=== PATIENT | male | born 1990 | race Caucasian/White ===

== ENCOUNTER 2019-01-11 13:54 | Inpatient (IN) | payer OTHER ==
[~2019-01-11] VITALS: Ht 185.4 cm; Wt 73.0 kg
--- OUTSIDE RECORDS SUMMARY | 2019-01-11 13:57 | XMS REPORT | Continuity of Care Document ---
Author Author [employer] Address Unknown Phone Unavailable Care Team Providers Care Gold Leaf Printer Name Role Phone wmbly Unavailable Unavailable Problems Problem Status Onset Date Classification Date Reported Comments Source Right upper quadrant pain 09/10/2016 Diagnosis 09/10/2016 [facility] Medications Medication Details Route Status Patient Instructions Ordering Provider Order Date Source No Medications Reported No Medications Reported Active [facility] Allergies, Adverse Reactions, Alerts No Known Medication Allergies Immunizations No Data Provided for This Section Results No Data Provided for This Section Pathology Reports No Data Provided for This Section Diagnostic Reports No Data Provided for This Section Consultation Notes No Data Provided for This Section Discharge Summaries No Data Provided for This Section History and Physicals No Data Provided for This Section Vital Signs Vital Sign Value Date Comments Source Diastolic (mm Hg) 80 09/10/2016 [facility] Height 73 09/10/2016 [facility] Systolic (mm Hg) 126 09/10/2016 [facility] Weight 170 09/10/2016 [facility] Encounters Location Location Details Encounter Type Encounter Number Reason For Visit Attending Provider ADM Date DC Date Status Source [place] - [id number] Ramila [facility]brahim, LABEL SEWER-C: [address], [place] [address], Ph. [id number] Ramila Ibrahim 09/10/2016 [facility] Procedures No Data Provided for This Section Assessment and Plan No Data Provided for This Section Plan of Care No Data Provided for This Section Social History Social History Date Source Smoking Status Current Some Day Smoker 09/10/2016 [facility] Family History No Data Provided for This Section Advance Directives No Data Provided for This Section Functional Status No Data Provided for This Section
--- OUTSIDE RECORDS SUMMARY | 2019-01-11 13:57 | XMS REPORT | Encounter Summary ---
Author Organization Unknown Address [address] [place] [address] Phone [phone] Reason for Visit Medical Complaint Instructions 1. Right upper quadrant pain call back Discussion Note: None recorded. Plan of Care Patient Instructions Recommend patient to follow-up with primary care provider for work-up - scheduled appointment through health post with primary care provider for 4PM today. Recommend blood work (complete metabolic panel for liver function) and abdominal ultrasound to evaluate liver/gallbladder involvement/inflammation. Reminders Provider Appointments None recorded. Lab None recorded. Referral None recorded. Procedures None recorded. Surgeries None recorded. Imaging None recorded. Medications No Medications Reported Medications Administered None recorded. Vitals Height Weight BMI Blood Pressure 6 ft 1 in 170 lbs 22.4 126/80 Lab Results None recorded. Allergies Name Reaction Severity Onset NKDA Problems None recorded. Procedures None recorded. Vaccine List None recorded. Social History Smoking Status Current Some Day Smoker Past Encounters 09/10/2016 Right Upper Quadrant Pain Ramila Ibrahim METAL ROLLING MILL OPERATOR-C: [address], [place] [address], Ph. History of Present Illness Doxzry-Rmyeuzkh-Hmlngqsz / Abdominal Pain Reported By: Patient HPI: Quality: soft, intermittent. Severity: moderate. Duration: present for < 1 week; stomach pain, diarrhea off and on x 1 week; vomited X 1 day. Onset/Timing: worse in the morning. Context: no one else with similar symptoms, no recent camping, no recent picnic, no possible food sources, no recent travel. Alleviating factors: ; Nothing. Aggravating factors: ; Can't identify any aggravating factors. Associated Symptoms: no fever/chills, no rash, no joint pain, no weight loss, no blood in stool, no mucus in stool, no black or tarry stools, abdominal pain, excess gas, nausea, vomiting Notes: Reports drinking 6-7 beers/day Review of Systems Basic Reported By: Patient Constitutional: Constitutional: no fever Eyes: Eyes: no eye complaints Zbbi-Yufq-Eedeb-Throat: Ears: no ear complaints. Nose: no nose/sinus problems. Mouth/Throat: no sore throat, no bleeding gums, no mouth complaints, no teeth problems Cardiovascular: Cardiovascular: no chest pain, no shortness of breath, no known heart murmur Respiratory: Respiratory: no cough, no wheezing, no shortness of breath Genitourinary: Genitourinary: no urinary complaints, no discharge Musculoskeletal: Musculoskeletal: no muscle aches, no muscle weakness, no arthralgias/joint pain, no back pain Neurologic: Neurologic: no loss of consciousness, no weakness, no numbness, no seizures, no dizziness, no headaches Physical Exam Adult Basic, Adult Male Complete Reported By: Patient Constitutional: General Appearance: healthy-appearing, well-nourished, well-developed. Level of Distress: NAD. Ambulation: ambulating normally Psychiatric: Mental Status: active and alert. Orientation: to time, to place, to person Eyes: Lids and Conjunctivae: non-injected, no discharge, no pallor. Pupils: PERRLA. Lens: clear. Sclerae: non-icteric Neck: Neck: supple. Lymph Nodes: no cervical LAD, no supraclavicular LAD Lungs: Respiratory effort: no dyspnea, no tachypnea, no use of accessory muscles, no intercostal retractions. Auscultation: breath sounds normal, good air movement Cardiovascular: Heart Auscultation: RRR, no murmurs Neurologic: Gait and Station: normal gait, normal station Abdomen: Bowel Sounds: normal. Inspection and Palpation: soft, no guarding, no rebound tenderness, no masses, RUQ tenderness
[2019-01-11] MEDS ORDERED: DIATRIZOATE MEGL/DIATRIZOA SOD 30 ML BTL PO ONE (14:35)
[2019-01-11 14:48] LABS: BASOPHILS # (AUTO) 0.1 (0.0-0.1); BASOPHILS % 0.5 % (0.0-1.0); EOSINOPHILS # (AUTO) 0.1 (0.0-0.4); EOSINOPHILS % 0.5 % (0.0-6.0); HEMATOCRIT 42.4 % (38.2-49.6); HEMOGLOBIN 14.9 g/dL (14.0-18.0); LYMPHOCYTES # (AUTO) 1.4 (1.0-3.2); LYMPHOCYTES % 9.4 % (18.0-39.1); MEAN CORPUSCULAR HEMOGLOBIN 33.9 pg (28-32); MEAN CORPUSCULAR HGB CONC 35.1 g/dL (31-35); MEAN CORPUSCULAR VOLUME 96.6 fL (81-99); MONOCYTES # (AUTO) 1.7 (0.2-0.8); MONOCYTES % 11.2 % (4.4-11.3); NEUTROPHILS # (AUTO) 11.4 (2.1-6.9); NEUTROPHILS % 77.7 % (38.7-80.0); PLATELET COUNT 248 x10e3/uL (140-360); RED BLOOD COUNT 4.39 x10e6/uL (4.3-5.7); RED CELL DISTRIBUTION WIDTH 12.3 % (11.7-14.4)
[2019-01-11 15:07] LABS: ANION GAP 18.4 mmol/L (8-16); BLOOD UREA NITROGEN 10 mg/dL (7-26); BUN/CREATININE RATIO 10 (6-25); CALCIUM 10.5 mg/dL (8.4-10.2); CARBON DIOXIDE 23 mmol/L (22-29); CHLORIDE 96 mmol/L (98-107); CREATININE, SERUM 0.99 mg/dL (0.72-1.25); EST GLOMERULAR FILTRATION RATE > 60 ML/MIN (60-); GLUCOSE 110 mg/dL (74-118); POTASSIUM 3.4 mmol/L (3.5-5.1); SODIUM 134 mmol/L (136-145)
[2019-01-11] MEDS ORDERED: SODIUM CHLORIDE 0.9% 1000ML 1,000 ML IV SCH (15:15)
[2019-01-11] MEDS ORDERED: POTASSIUM CHLORIDE 20 MEQ TAB CR PO ONE (15:15)
[2019-01-11 16:20] LABS: BILIRUBIN,URINE MODERATE (NEGATIVE); CLARITY,URINE SL CLOUDY (CLEAR); COLOR,URINE YELLOW (YELLOW); LEUKOCYTE ESTERASE ,URINE NEGATIVE (NEGATIVE); NITRITE,URINE NEGATIVE (NEGATIVE); PROTEIN,URINE DIPSTICK 1+ (NEGATIVE); URINE UROBILINOGEN 1 mg/dL (0.2 - 1)
[2019-01-11 16:21] LABS: KETONES,URINE 1+ (NEGATIVE)
[2019-01-11 16:32] LABS: BACTERIA,URINE MANY /HPF; EPITHELIAL CELLS,URINE MODERATE /LPF
--- NOTE | 2019-01-11 17:15 | Diagnostic Imaging Report ---
EXAM: CT Abdomen and Pelvis WITH intravenous contrast INDICATION: Rectal pain COMPARISON: None. TECHNIQUE: Abdomen and pelvis were scanned utilizing a multidetector helical scanner from the lung base to the pubic symphysis after administration of IV contrast. Coronal and sagittal reformations were obtained. Routine protocol was performed. Scan was performed when during portal venous phase. IV CONTRAST: 100mL of Isovue 370 ORAL CONTRAST: Water COMPLICATIONS: None RADIATION DOSE: Total DLP: 261.47 mGy*cm Dose modulation, iterative reconstruction, and/or weight based adjustment of the mA/kV was utilized to reduce the radiation dose to as low as reasonably achievable. FINDINGS: LOWER THORAX: Minimal bibasilar dependent subsegmental atelectasis. HEPATOBILIARY: Diffusely decreased hepatic parenchymal attenuation consistent with hepatic steatosis. No focal liver lesion. No biliary ductal dilatation. The gallbladder appears unremarkable. SPLEEN: No splenomegaly. PANCREAS: No focal masses or ductal dilatation. ADRENALS: No adrenal nodules. KIDNEYS/URETERS: No hydronephrosis, stones, or solid mass lesions. PELVIC ORGANS/BLADDER: Unremarkable. PERITONEUM / RETROPERITONEUM: No free air or fluid. LYMPH NODES: No lymphadenopathy. VESSELS: Unremarkable. GI TRACT: There is soft tissue thickening at the distal rectum with an adjacent 3.4 x 2.1 cm fluid collection which demonstrates peripheral enhancement. No other bowel wall thickening. No bowel obstruction. Normal appendix. BONES AND SOFT TISSUES: No acute osseous injury. No suspicious lytic or blastic lesions. IMPRESSION: Distal rectal soft tissue thickening with adjacent 3.4 x 2.1 cm perirectal abscess. Hepatic steatosis. Signed by: Sushma Jo MD on 01/11/2019 5:11 PM
[2019-01-11] MEDS ORDERED: MORPHINE SULFATE 2 MG/ML SYR 1ML IV PRN (17:45)
[2019-01-11] MEDS ORDERED: LORAZEPAM INJ 2 MG/ML VIAL IV PRN (18:15)
[2019-01-11] MEDS ORDERED: MULTIVITAMINS- 12 INJECTION 10 ML, FOLIC ACID MDV 5 MG, THIAMINE HCL INJ 100 MG in SODI... IV ONE (18:15)
[2019-01-11 18:26] LABS: ALBUMIN 4.3 g/dL (3.5-5.0); BILIRUBIN,DIRECT 0.5 mg/dL (0.0-0.5)
--- OUTSIDE RECORDS SUMMARY | 2019-01-11 18:57 | XMS REPORT | Continuity of Care Document ---
Author Author [employer] Address Unknown Phone Unavailable Care Team Providers Care Livestock Farm Manager Name Role Phone [employer] Unavailable Unavailable Problems Problem Status Onset Date [...] Date Status Source [place] [id number], WASTE TREATMENT OPERATOR-C: [address], [place] [address], Ph. [id number] Ramila Ibrahim 09/10/2016 [facility] Procedures No Data [...]
--- OUTSIDE RECORDS SUMMARY | 2019-01-11 18:57 | XMS REPORT ---
Author Author [facility] Address Unknown Phone Unavailable Care Team Providers Care Billposting Supervisor Name Role Phone SHLOMO BAÑUELOS Unavailable Unavailable Problems This patient has no known problems. Allergies, Adverse Reactions, Alerts This patient has no known allergies or adverse reactions. Medications This patient has no known medications. Results Test Description Test Time Test Comments Text Results Atomic Results Result Comments CT ABDOMEN/PELVIS W 2019-01-11 17:06:00 [place] [address] Patient Name: MARCELLA CABALLERO MR #: [id number] : 1990 Age/Sex: 28/M Req #: [id number] Adm Physician: Ordered by: KALA COLORADO TRACK MECHANIC Report #: [id number] Location: ER Room/Bed: Procedure: [id number] CT/CT ABDOMEN/PELVIS W Exam Date: 01/11/19 Exam Time: 1615 REPORT STATUS: Signed EXAM: CT Abdomen and Pelvis WITH intravenous contrast INDICATION: Rectal pain COMPARISON: None. TECHNIQUE: Abdomen and pelvis were scanned utilizing a multidetector helical scanner from the lung base to the pubic symphysis after administration of IV contrast. Coronal and sagittal reformations were obtained. Routine protocol was performed. Scan was performed when during portal venous phase. IV CONTRAST: 100mL of Isovue 370 ORAL CONTRAST: Water COMPLICATIONS: None RADIATION DOSE: Total DLP: 261.47 mGy*cm Dose modulation, iterative reconstruction, and/or weight based adjustment of the mA/kV was utilized to reduce the radiation dose to as low as reasonably achievable. FINDINGS: LOWER THORAX: Minimal bibasilar dependent subsegmental atelectasis. HEPATOBILIARY: Diffusely decreased hepatic parenchymal attenuation consistent with hepatic steatosis. No focal liver lesion. No biliary ductal dilatation. The gallbladder appears unremarkable. SPLEEN: No splenomegaly. PANCREAS: No focal masses or ductal dilatation. ADRENALS: No adrenal nodules. KIDNEYS/URETERS: No hydronephrosis, stones, or solid mass lesions. PELVIC ORGANS/BLADDER: Unremarkable. PERITONEUM / RETROPERITONEUM: No free air or fluid. LYMPH NODES: No lymphadenopathy. VESSELS: Unremarkable. GI TRACT: There is soft tissue thickening at the distal rectum with an adjacent 3.4 x 2.1 cm fluid collection which demonstrates peripheral enhancement. No other bowel wall thickening. No bowel obstruction. Normal appendix. BONES AND SOFT TISSUES: No acute osseous injury. No suspicious lytic or blastic lesions. IMPRESSION: Distal rectal soft tissue thickening with adjacent 3.4 x 2.1 cm perirectal abscess. Hepatic steatosis. Signed by: Jonathan Pate MD on 01/11/2019 5:11 PM Dictated By: JONATHAN PATE MD 10 Transcribed By: CHARLES on 01/11/191710 COPY TO: KALA COLORADO NP
--- NOTE | 2019-01-11 19:03 | Consultation ---
DATE OF CONSULTATION: 01/11/2019 REASON FOR CONSULTATION: Perirectal abscess. HISTORY OF PRESENT ILLNESS: The patient is a 28-year-old male, who has been having perirectal pain for several days as well as constipation. The patient's pain got worse, came to the Emergency Room at [facility]. The patient has a chronic history of diarrhea, has never been worked up for it. The patient also has a history of heavy drinking. He drinks about 12 pack every day and smokes in addition to the heavy drinking. PAST SURGICAL HISTORY: He has no previous surgeries. MEDICATIONS: None. FAMILY HISTORY: Noncontributory. REVIEW OF SYSTEMS: As per history of present illness. PHYSICAL EXAMINATION: GENERAL: Reveals a 28-year-old male, in no acute distress. His face is flushed. VITAL SIGNS: Stable. He is afebrile. HEAD: Reveals a flushed face. EARS, NOSE, AND THROAT: Revealed no active disease. LUNGS: Clear. HEART: Reveals regular sinus rhythm. ABDOMEN: Reveals a soft abdomen. RECTAL: Unable to be performed due to pain. The limited examination that I was able to perform does not appear that the patient have a fissure. LABORATORY DATA: Reveal white count of 14.7 with normal platelet count. Electrolytes show a potassium of 3.4. The CAT scan of the of the abdomen and pelvis is consistent with a perirectal abscess. ASSESSMENT: 1. Perirectal abscess. 2. Alcohol abuse. 3. Cigarette abuse. 4. Chronic diarrhea, which has never been worked up. PLAN: The plan is to admit the patient. Give him intravenous antibiotics, pain management, to proceed with rectal examination under anesthesia and incision and drainage of perirectal abscess in the morning. He and his are aware of potential complications such as bleeding, infection, recurrence, fistula formation, and urinary retention. These all have been discussed in detail with them and they agreed to proceed with surgery. The patient will be admitted to the hospital by Dr. Huerta and delirium tremens precautions are being instituted. Thank you very much for this consultation. MD VERONIKA Mullins/ANA /[id number]
[2019-01-11] MEDS: CEFTRIAXONE SOD 2 GM/NS 100 ML 100 ML IV SCH (19:10)
[2019-01-11] MEDS: METRONIDAZOLE 500MG/NS 100ML 100 ML IV SCH ×2 (19:30→23:52)
[2019-01-11] MEDS: MORPHINE SULFATE INJ 4 MG/ML INJ 1ML IV PRN (21:05)
[2019-01-11] MEDS: ONDANSETRON HCL INJ 2MG/ML 2ML 2 MG/ML VIAL IV PRN (21:05)
--- NOTE | 2019-01-11 21:15 | NUR ---
PATIENT RECIEVED TO FLOOR WITH NO COMPLAINTS OF PAIN OR DISCOMFORT AT THIS TIME, AT BEDSIDE. PATIENT EDUCATED ON PAIN MANAGEMENT AND OPTIONS FOR WITHDRAWL. PATIENT RESTING COMFORTABLY IN BED AT THIS TIME. ALSO EDUCATED OF NPO STATUS AT MIDNIGHT. WILL CONTINUE TO MONITOR.
[2019-01-11 22:19] VITALS: BP 123/79
[2019-01-11 22:22] VITALS: BP 123/79
[2019-01-11] MEDS ORDERED: SODIUM CHLORIDE 0.9% 50ML 50 ML ONE (22:27)
[2019-01-11] MEDS ORDERED: IOPAMIDOL 370 MG/ML 200 ML INFUS..BTL INJ ONE (22:27)
[2019-01-11 23:00] VITALS: BP 113/73
[2019-01-12] VITALS (11 sets, daily range): BP systolic 101–119; BP diastolic 65–82
[2019-01-12] MEDS: MORPHINE SULFATE INJ 4 MG/ML INJ 1ML IV PRN ×3 (01:05→12:05)
[2019-01-12] MEDS: METRONIDAZOLE 500MG/NS 100ML 100 ML IV SCH ×4 (05:22→23:47)
[2019-01-12] MEDS ORDERED: HYDRALAZINE HCL 20 MG/ML VIAL IV PRN (06:30)
[2019-01-12] MEDS ORDERED: ACETAMINOPHEN 325 MG TAB PO PRN (06:30)
[2019-01-12] MEDS ORDERED: LORAZEPAM INJ 2 MG/ML VIAL IV PRN (06:30)
[2019-01-12 07:03] LABS: BASOPHILS # (AUTO) 0.1 (0.0-0.1); BASOPHILS % 0.3 % (0.0-1.0); EOSINOPHILS # (AUTO) 0.1 (0.0-0.4); EOSINOPHILS % 0.4 % (0.0-6.0); HEMATOCRIT 35.7 % (38.2-49.6); HEMOGLOBIN 12.5 g/dL (14.0-18.0); LYMPHOCYTES % 6.3 % (18.0-39.1); MEAN CORPUSCULAR HEMOGLOBIN 34.2 pg (28-32); MEAN CORPUSCULAR VOLUME 97.8 fL (81-99); MONOCYTES # (AUTO) 2.1 (0.2-0.8); MONOCYTES % 13.4 % (4.4-11.3); NEUTROPHILS # (AUTO) 12.6 (2.1-6.9); PLATELET COUNT 223 x10e3/uL (140-360); RED BLOOD COUNT 3.65 x10e6/uL (4.3-5.7); RED CELL DISTRIBUTION WIDTH 12.3 % (11.7-14.4)
[2019-01-12 07:22] LABS: ANION GAP 14.7 mmol/L (8-16); BLOOD UREA NITROGEN < 5 mg/dL (7-26); CARBON DIOXIDE 21 mmol/L (22-29); CHLORIDE 105 mmol/L (98-107); CREATININE, SERUM 0.67 mg/dL (0.72-1.25); EST GLOMERULAR FILTRATION RATE > 60 ML/MIN (60-); GLUCOSE 92 mg/dL (74-118); MAGNESIUM 2.1 MG/DL (1.3-2.1); POTASSIUM 3.7 mmol/L (3.5-5.1); SODIUM 137 mmol/L (136-145)
[2019-01-12 07:27] LABS: BUN/CREATININE RATIO 7 (6-25)
[2019-01-12] MEDS: FAMOTIDINE 20 MG TAB PO SCH ×2 (07:30→16:58)
[2019-01-12] MEDS: FOLIC ACID 1 MG TAB PO SCH ×2 (07:38→11:40)
[2019-01-12] MEDS: MULTIVITAMINS/MINERALS TAB PO SCH ×2 (07:38→11:40)
[2019-01-12] MEDS: THIAMINE HCL 100 MG TAB PO SCH ×2 (07:39→11:39)
[2019-01-12] MEDS ORDERED: HYDROGEN PEROXIDE 120 ML BTL ONE (08:31)
[2019-01-12] MEDS ORDERED: LIDOCAINE HCL 2% 30 ML TUBE ONE (08:31)
[2019-01-12] MEDS: NICOTINE 21 MG/EA PATCH TOP SCH ×2 (09:00→11:38)
[2019-01-12 09:05] LABS: EOSINOPHILS % (MANUAL) 1 % (0-7); LYMPHOCYTES % (MANUAL) 10 % (19-48); MONOCYTES % (MANUAL) 10 % (3.4-9.0); NEUTROPHILS % (MANUAL) 79 % (40-74)
[2019-01-12 09:06] LABS: PLATELET ESTIMATE ADEQUATE; PLATELET MORPHOLOGY COMMENT NORMAL; RBC MORPHOLOGY COMMENT NORMAL
[2019-01-12] MEDS ORDERED: LEVOFLOXACIN 500MG/D5W 100ML 100 ML IV ONE (09:45)
--- NOTE | 2019-01-12 11:11 | Operative Report ---
DATE OF PROCEDURE: 01/12/2019 SURGEON: Noe Enamorado MD PREOPERATIVE DIAGNOSIS: Perirectal abscess. POSTOPERATIVE DIAGNOSIS: Perirectal abscess. PROCEDURE PERFORMED: Rectal examination under anesthesia, anoscopy, and incision and drainage of perirectal abscess. ANESTHESIA: General. ESTIMATED BLOOD LOSS: Minimal. DRAINS: None. COMPLICATIONS: None. INDICATION AND FINDINGS: The patient is a 28-year-old male admitted with perianal and rectal pain, tenesmus, constipation for several days. The patient had a history of chronic diarrhea, which had never been worked up. He denied any rectal bleeding. INTRAOPERATIVE FINDINGS: The patient had a perirectal abscess that was palpable through the examining finger with the patient in the lithotomy position. The abscess was located posteriorly somewhat was bulging into the rectum. There was some pointing also towards the perianal skin. The abscess was pointing into the lumen of the rectum in the lithotomy position around the 3 to 4 o'clock position. It was more easily palpable through the rectum than it was actually through the perianal skin at that location. The abscess cavity was irrigated and we did not see any connection with rectal lumen indicating a fistula in the location. Preoperatively, the patient, his understood potential complications including the fact that he has chronic diarrhea, has never been worked up and recurrence infection bleeding, urinary retention were all potential complications. DESCRIPTION OF PROCEDURE: With the patient lying on the operative table in the supine position after administration of general anesthesia, he was placed in the lithotomy position. The buttocks were shaved with electric razor and prepped and draped. An anal pack was placed with iodoform gauze and rectal examination revealed the palpable abscess through the rectum at the previously described location. It was also palpable through the perianal region or around the previously described location. At that point, I decided to proceed with the incision and drainage of the abscess extra-luminally. A small incision was made in the perianal skin about the 3-4 o'clock location outside of the centric ring and then the cavity was entered. Loculations were bluntly broken down with a clamp. All the pus, which was foul smelling was drained. The cavity was then irrigated with saline and peroxide. We did not see any evidence of fistula formation or any peroxide visible bubbling into the rectal lumen. Aerobic and anaerobic cultures were taken. The cavity was then packed with 1 inch iodoform gauze that was secured to skin with 3-0 silk. The patient tolerated the procedure well, taken to recovery room in stable condition. The family informed of the intraoperative findings. MD VERONIKA Mullins/ANA /[id number]
[2019-01-12] MEDS: ONDANSETRON HCL INJ 2MG/ML 2ML 2 MG/ML VIAL IV PRN (12:05)
[2019-01-12] MEDS: CEFTRIAXONE SOD 2 GM/NS 100 ML 100 ML IV SCH (16:58)
[2019-01-12] MEDS ORDERED: SEVOFLURANE INHAL SOLN 250 ML PEN BTL ONE (17:17)
[2019-01-12] MEDS ORDERED: ONDANSETRON HCL INJ 2MG/ML 2ML 2 MG/ML VIAL ONE (17:17)
[2019-01-12] MEDS ORDERED: KETOROLAC TROMETHAMINE 30 MG/ML VIAL ONE (17:17)
[2019-01-12] MEDS ORDERED: PROPOFOL IV EMULSION 10 MG/ML 20 ML VIAL ONE (17:17)
[2019-01-12] MEDS ORDERED: DEXAMETHASONE SOD PHOS INJ 4 MG/ML VIAL ONE (17:17)
[2019-01-12] MEDS ORDERED: LIDOCAINE HCL 2% LOCAL INJ 5 ML SDV VIAL INJ ONE (17:17)
[2019-01-12] MEDS: HYDROCODONE/APAP 7.5MG-325MG 1 EA TAB PO PRN ×2 (18:20→23:48)
[2019-01-13 05:24] LABS: BASOPHILS # (AUTO) 0.1 (0.0-0.1); BASOPHILS % 0.4 % (0.0-1.0); EOSINOPHILS # (AUTO) 0.1 (0.0-0.4); EOSINOPHILS % 0.9 % (0.0-6.0); HEMATOCRIT 34.7 % (38.2-49.6); HEMOGLOBIN 11.4 g/dL (14.0-18.0); LYMPHOCYTES % 17.1 % (18.0-39.1); MEAN CORPUSCULAR HEMOGLOBIN 33.1 pg (28-32); MEAN CORPUSCULAR HGB CONC 32.9 g/dL (31-35); MEAN CORPUSCULAR VOLUME 100.9 fL (81-99); MONOCYTES # (AUTO) 1.9 (0.2-0.8); MONOCYTES % 15.8 % (4.4-11.3); NEUTROPHILS # (AUTO) 7.7 (2.1-6.9); PLATELET COUNT 238 x10e3/uL (140-360); RED BLOOD COUNT 3.44 x10e6/uL (4.3-5.7); RED CELL DISTRIBUTION WIDTH 12.6 % (11.7-14.4)
[2019-01-13 05:48] LABS: ANION GAP 12.4 mmol/L (8-16); BLOOD UREA NITROGEN < 5 mg/dL (7-26); CALCIUM 9.1 mg/dL (8.4-10.2); CARBON DIOXIDE 28 mmol/L (22-29); CHLORIDE 104 mmol/L (98-107); EST GLOMERULAR FILTRATION RATE > 60 ML/MIN (60-); GLUCOSE 91 mg/dL (74-118); POTASSIUM 3.4 mmol/L (3.5-5.1); SODIUM 141 mmol/L (136-145)
[2019-01-13 05:49] LABS: BUN/CREATININE RATIO 7 (6-25)
[2019-01-13] MEDS: METRONIDAZOLE 500MG/NS 100ML 100 ML IV SCH ×4 (06:05→23:35)
[2019-01-13] MEDS: HYDROCODONE/APAP 7.5MG-325MG 1 EA TAB PO PRN ×3 (06:08→21:28)
[2019-01-13 06:51] LABS: EOSINOPHILS % (MANUAL) 4 % (0-7); LYMPHOCYTES % (MANUAL) 25 % (19-48); MONOCYTES % (MANUAL) 10 % (3.4-9.0); NEUTROPHILS % (MANUAL) 59 % (40-74)
[2019-01-13 06:52] LABS: RBC MORPHOLOGY COMMENT ABNORMAL
[2019-01-13 06:53] LABS: PLATELET ESTIMATE ADEQUATE; PLATELET MORPHOLOGY COMMENT NORMAL
--- NOTE | 2019-01-13 07:00 | NUR ---
Pt received resting in bed. Alert and oriented x4. Oriented to staff and surroundings. Encouraged to press call montanez if help needed. Call montanez within reach. Will monitor
[2019-01-13 07:25] VITALS: BP 112/73
[2019-01-13 09:35] VITALS: BP 112/73
--- NOTE | 2019-01-13 09:35 | NUR ---
All meds given as ordered. Dressing to abscess changed with Gauze, and abd pads. Emotional support given. Will monitor
[2019-01-13] MEDS: THIAMINE HCL 100 MG TAB PO SCH (09:36)
[2019-01-13] MEDS: FAMOTIDINE 20 MG TAB PO SCH ×2 (09:36→17:39)
[2019-01-13] MEDS: FOLIC ACID 1 MG TAB PO SCH (09:36)
[2019-01-13] MEDS: MULTIVITAMINS/MINERALS TAB PO SCH (09:36)
--- NOTE | 2019-01-13 10:10 | NUR ---
Pt left for 2V xray
--- NOTE | 2019-01-13 10:18 | NUR ---
Pt returned from Xray
--- NOTE | 2019-01-13 10:37 | Diagnostic Imaging Report ---
Chest, 2 views, 01/13/2019. History: History of smoking. Comparison: None available. Findings: The cardiomediastinal silhouette and pulmonary vasculature are within normal limits. Linear opacities are present in the right upper lobe and left lower lobe. The lungs are otherwise clear without evidence of consolidation or pleural effusion. There are no acute osseous or soft tissue abnormalities. Impression: Bilateral subsegmental atelectasis. Signed by: Andrez Lindquist on 01/13/2019 10:34 AM
[2019-01-13 11:34] VITALS: BP 121/76
--- NOTE | 2019-01-13 12:29 | NUR ---
Attempted to give pt [place] for pain, but pt refused stating that he's "about to sign closing documents in order to purchase a house, and does not want any drugs in his system." Emotional support given. Will monitor
[2019-01-13] MEDS ORDERED: MIDAZOLAM HCL 2 MG/2 ML VIAL ONE (15:58)
[2019-01-13] MEDS ORDERED: FENTANYL CITRATE/PF 100MCG/2 ML INJ ONE (15:58)
[2019-01-13] MEDS: CEFTRIAXONE SOD 2 GM/NS 100 ML 100 ML IV SCH (17:39)
[2019-01-13 19:19] VITALS: BP 112/79
[2019-01-13 22:20] VITALS: BP 121/71
[2019-01-13] MEDS ORDERED: SODIUM CHLORIDE 0.9% 250ML 250 ML ONE (22:20)
--- NOTE | 2019-01-13 22:20 | NUR ---
received pt to room 213 from IMCU, no c/o pain or discomfort, resp even and unlabored, bed in lowest and locked position, call light in reach
[2019-01-13 23:21] VITALS: BP 121/71
[2019-01-14] VITALS (8 sets, daily range): BP systolic 104–123; BP diastolic 60–71
[2019-01-14 05:09] LABS: BASOPHILS # (AUTO) 0.1 (0.0-0.1); BASOPHILS % 0.9 % (0.0-1.0); EOSINOPHILS # (AUTO) 0.3 (0.0-0.4); EOSINOPHILS % 3.4 % (0.0-6.0); HEMATOCRIT 36.6 % (38.2-49.6); HEMOGLOBIN 12.2 g/dL (14.0-18.0); LYMPHOCYTES # (AUTO) 1.9 (1.0-3.2); LYMPHOCYTES % 21.6 % (18.0-39.1); MEAN CORPUSCULAR HEMOGLOBIN 33.5 pg (28-32); MEAN CORPUSCULAR HGB CONC 33.3 g/dL (31-35); MEAN CORPUSCULAR VOLUME 100.5 fL (81-99); MONOCYTES # (AUTO) 1.6 (0.2-0.8); MONOCYTES % 17.6 % (4.4-11.3); NEUTROPHILS # (AUTO) 4.9 (2.1-6.9); NEUTROPHILS % 55.9 % (38.7-80.0); PLATELET COUNT 269 x10e3/uL (140-360); RED BLOOD COUNT 3.64 x10e6/uL (4.3-5.7); RED CELL DISTRIBUTION WIDTH 12.4 % (11.7-14.4)
[2019-01-14 05:27] LABS: ANION GAP 14.8 mmol/L (8-16); BLOOD UREA NITROGEN < 5 mg/dL (7-26); CALCIUM 9.6 mg/dL (8.4-10.2); CARBON DIOXIDE 30 mmol/L (22-29); CHLORIDE 104 mmol/L (98-107); CREATININE, SERUM 0.82 mg/dL (0.72-1.25); EST GLOMERULAR FILTRATION RATE > 60 ML/MIN (60-); GLUCOSE 97 mg/dL (74-118); POTASSIUM 3.8 mmol/L (3.5-5.1); SODIUM 145 mmol/L (136-145)
[2019-01-14 05:30] LABS: BUN/CREATININE RATIO 6 (6-25)
[2019-01-14] MEDS: METRONIDAZOLE 500MG/NS 100ML 100 ML IV SCH ×3 (06:18→20:24)
[2019-01-14] MEDS: FAMOTIDINE 20 MG TAB PO SCH ×2 (08:19→19:39)
[2019-01-14] MEDS: FOLIC ACID 1 MG TAB PO SCH (08:19)
[2019-01-14] MEDS: HYDROCODONE/APAP 7.5MG-325MG 1 EA TAB PO PRN ×2 (08:20→19:45)
[2019-01-14] MEDS: ONDANSETRON HCL INJ 2MG/ML 2ML 2 MG/ML VIAL IV PRN (08:20)
[2019-01-14] MEDS: MULTIVITAMINS/MINERALS TAB PO SCH (08:30)
[2019-01-14] MEDS: NICOTINE 21 MG/EA PATCH TOP SCH (08:30)
[2019-01-14] MEDS: THIAMINE HCL 100 MG TAB PO SCH (08:30)
--- NOTE | 2019-01-14 19:00 | NUR ---
Handoff report to oncoming nurse made aware 1800 Flagyl needs to be given, nurse verbalized understanding.
[2019-01-14] MEDS: CEFTRIAXONE SOD 2 GM/NS 100 ML 100 ML IV SCH (19:39)
[2019-01-15] MEDS: METRONIDAZOLE 500MG/NS 100ML 100 ML IV SCH ×3 (00:25→12:00)
[2019-01-15 00:35] VITALS: BP 124/82
[2019-01-15 06:02] LABS: BASOPHILS # (AUTO) 0.1 (0.0-0.1); BASOPHILS % 1.2 % (0.0-1.0); EOSINOPHILS # (AUTO) 0.3 (0.0-0.4); EOSINOPHILS % 5.1 % (0.0-6.0); HEMATOCRIT 36.1 % (38.2-49.6); LYMPHOCYTES # (AUTO) 1.9 (1.0-3.2); LYMPHOCYTES % 28.6 % (18.0-39.1); MEAN CORPUSCULAR HEMOGLOBIN 33.3 pg (28-32); MEAN CORPUSCULAR HGB CONC 33.2 g/dL (31-35); MEAN CORPUSCULAR VOLUME 100.3 fL (81-99); MONOCYTES # (AUTO) 1.2 (0.2-0.8); MONOCYTES % 18.6 % (4.4-11.3); NEUTROPHILS # (AUTO) 3.1 (2.1-6.9); PLATELET COUNT 318 x10e3/uL (140-360); RED CELL DISTRIBUTION WIDTH 12.2 % (11.7-14.4)
[2019-01-15 06:19] LABS: ANION GAP 12.3 mmol/L (8-16); BLOOD UREA NITROGEN < 5 mg/dL (7-26); BUN/CREATININE RATIO 6 (6-25); CALCIUM 9.8 mg/dL (8.4-10.2); CARBON DIOXIDE 30 mmol/L (22-29); CHLORIDE 103 mmol/L (98-107); CREATININE, SERUM 0.82 mg/dL (0.72-1.25); EST GLOMERULAR FILTRATION RATE > 60 ML/MIN (60-); GLUCOSE 90 mg/dL (74-118); MAGNESIUM 2.4 MG/DL (1.3-2.1); POTASSIUM 3.3 mmol/L (3.5-5.1); SODIUM 142 mmol/L (136-145)
[2019-01-15 07:04] LABS: PHOSPHORUS 4.3 MG/DL (2.3-4.7)
[2019-01-15 08:05] VITALS: BP 132/69
[2019-01-15 09:50] VITALS: BP 132/69
[2019-01-15] MEDS: THIAMINE HCL 100 MG TAB PO SCH (09:52)
[2019-01-15] MEDS: FAMOTIDINE 20 MG TAB PO SCH (09:52)
[2019-01-15] MEDS: MULTIVITAMINS/MINERALS TAB PO SCH (09:52)
[2019-01-15] MEDS: FOLIC ACID 1 MG TAB PO SCH (09:52)
[2019-01-15] MEDS: NICOTINE 21 MG/EA PATCH TOP SCH (09:54)
[2019-01-15] MEDS ORDERED: POTASSIUM CHLORIDE 20 MEQ TAB CR PO ONE (10:00)
[2019-01-15] MEDS ORDERED: ZINC SULFATE220 M1 PO (10:51)
[2019-01-15] MEDS ORDERED: ACETAMINOPHEN325 M1 PO (10:51)
[2019-01-15] MEDS ORDERED: NICODERM CQ1 EAC2 TOP (10:51)
[2019-01-15] MEDS ORDERED: VITAMIN B-1100 MG PO (10:51)
[2019-01-15] MEDS ORDERED: Multivitamins/Minerals PO (10:51)
[2019-01-15] MEDS ORDERED: ASCORBIC ACID500 MG PO (10:51)
[2019-01-15] MEDS ORDERED: TYLENOL # 31 EA PO (10:51)
[2019-01-15] MEDS ORDERED: FOLIC ACID1 MG PO (10:51)
[2019-01-15] MEDS ORDERED: Calcium Carbonate PO (10:51)
[2019-01-15] MEDS ORDERED: BACTRIM DS TAB1 EACH PO (10:54)
[2019-01-15] MEDS ORDERED: CIPRO500 MG PO (10:54)
[2019-01-15 11:28] VITALS: BP 109/66
[2019-01-15] MEDS: HYDROCODONE/APAP 7.5MG-325MG 1 EA TAB PO PRN (11:55)
[2019-01-15] MEDS ORDERED: LEVAQUIN500 MG PO (12:03)
[2019-01-15] MEDS ORDERED: FLAGYL500 MG PO (12:07)
--- NOTE | 2019-01-15 13:05 | NUR ---
Right AC IV discontinued. No signs of infiltration noted. 2x2 gauze and tape placed. Taken via wheelchair, by PCT, to personal car. Accompanied by significant other. AAOX4 to time, person, place, situation. Respirations even and unlabored. Discharge instructions, rx, and all personal belongings taken with patient.
[2019-01-15] MEDS ORDERED: ASCORBIC ACID 500 MG TAB PO SCH (17:00)
[2019-01-15] MEDS ORDERED: ZINC SULFATE 220 MG CAP PO SCH (17:00)
[2019-01-15] MEDS ORDERED: OYST-CAL-D 500MG TABLET PO SCH (17:00)
--- NOTE | 2019-01-16 03:33 | Discharge Summary ---
CONSULTING PHYSICIAN: Noe Enamorado MD HISTORY OF PRESENT ILLNESS: Mr. Zhong is a 28-year-old male, who had complained of perirectal pain and constipation for approximately 1 week prior to admission. The pain was initially intermittent, but became sharp. He denied nausea, vomiting, diarrhea, fever, or abdominal pain on admission, and had not seen any drainage. PAST MEDICAL HISTORY: Includes irritable bowel syndrome. PAST SURGICAL HISTORY: Includes hernia repair. FAMILY HISTORY: At the time of H and P, the family history was noncontributory. SOCIAL HISTORY: Smokes half a pack a day. Alcohol, he drinks a 12 pack of beer a day for the last 10 years and considers himself an alcoholic. Denies illicit drug use. ALLERGIES: NO KNOWN ALLERGIES. ADMISSION DIAGNOSES: Include: 1. Perirectal abscess. 2. Alcoholism. 3. Tobacco use. DISCHARGE DIAGNOSES: 1. Perirectal abscess. 2. Alcoholism. 3. Tobacco use. 4. Acute hypokalemia. 5. Mild hypermagnesemia. HOSPITAL COURSE: The patient received Flagyl and Rocephin during his stay for the perirectal abscess. The culture that was collected grew pansensitive E coli. CT of the abdomen was positive for perirectal abscess. A culture had been collected on 01/12. Chest x-ray done on the had shown bilateral subsegmental atelectasis. On 01/12/2019, he underwent I and D. Today at the bedside, Dr. Enamorado removed the packing and inserted additional gauze and explained to the that tomorrow he should remove that and then begin sitz baths. Today, his potassium level was 3.3. This was repleted with 40 mEq of potassium chloride orally. On admission, WBCs 14.7; then on , 15.99, which was the highest during admission. Today on the day of discharge, WBC 6.65, hemoglobin is 12 today, hematocrit 36.1, BUN less than 5, creatinine 0.82, and GFR greater than 60. Magnesium level today 2.4. Dr. Enamorado and I were both at the bedside today and discussed with the patient the importance of stopping drinking that he should not drink any alcohol whatsoever including any cough drops. His was present as well. It was explained to the patient that the new medication such as Flagyl would cause him to be sick if he did drink alcohol. DISCHARGE PRESCRIPTIONS: Include Nicoderm CQ 21 mg topical daily, Flagyl 250 mg p.o. t.i.d., lower dosage was used in case he has any liver dysfunction from the alcohol. He has been here long enough that he is clear of any DTs or delirium tremens. Levaquin 500 mg p.o. daily. Both Flagyl and Levaquin will be for 7 days. Tylenol No.3 one tablet p.o. q.4 hours p.r.n. for severe pain, quantity 20; Tylenol; vitamin C; calcium carbonate; folic acid; multivitamin; zinc sulfate. Some medications are for wound healing supplements. The patient has no complaints of pain before the procedure. He still has perirectal tenderness. He had 2 diarrheal stools yesterday and will follow up with Dr. Minor for chronic diarrhea. The patient is to see him within 2 weeks. He is to see Dr. Huerta in 1-2 weeks and establish PCP. Follow up with Dr. Enamorado on Wednesday, the 17 of January. He denies any chills. He has been switched from a full liquid diet to a regular diet. ACTIVITY LEVEL: As tolerated. Dictated by Mark Barrios NP Bentley Huerta MD HWP/MODL /[id number]
== END 2019-01-15 13:05 | disposition home or self-care (01) | DRG 854 ==
LOC: ER 13:54 → ERHOLD 17:44 → IMCU 21:40 → MED/SURG2 01-13 22:10
PROVIDERS: ADMIT Internal Medicine; ATTEND Internal Medicine
PROC: 0D9P0ZZ Drainage of Rectum, Open Approach (ICD-10-PCS; principal; 2019-01-12 12:30)
DX: A41.9 Sepsis, unspecified organism (principal); K61.1 Rectal abscess; F10.20 Alcohol dependence, uncomplicated; F17.210 Nicotine dependence, cigarettes, uncomplicated; K58.9 Irritable bowel syndrome, unspecified
CPT/HCPCS: 36415; 71046; 74177; 80048; 80076; 81001; 82140; 83735; 84100; 85025; 87071; 87075; 87086; 87186; 87205; 99284; J0696; J1100; J1885; J1956; J2001; J2250; J2270; J2405; J3010; J3411; J7030; J7050; Q9967

== ENCOUNTER 2021-10-30 16:16 | Emergency (ER) | payer OTHER ==
[~2021-10-30] VITALS: Ht 185.4 cm; Wt 73.0 kg
[~2021-10-30 16:16] MED LIST: ACETAMINOPHEN325 M1 PO; ASCORBIC ACID500 MG PO; BACTRIM DS TAB1 EACH PO; CIPRO500 MG PO; Calcium Carbonate PO; FLAGYL500 MG PO; FOLIC ACID1 MG PO; LEVAQUIN500 MG PO; Multivitamins/Minerals PO; NICODERM CQ1 EAC2 TOP; TYLENOL # 31 EA PO; VITAMIN B-1100 MG PO; ZINC SULFATE220 M1 PO
[2021-10-30] MEDS ORDERED: CEPHALEXIN500 MG PO (17:07)
== END 2021-10-30 17:15 | disposition home or self-care (01) ==
LOC: ER 17:04
DX: H57.12 Ocular pain, left eye (principal); H10.9 Unspecified conjunctivitis; K21.9 Gastro-esophageal reflux disease without esophagitis
CPT/HCPCS: 99282

== ENCOUNTER 2022-07-14 20:05 | Emergency (ER) | payer OTHER ==
[~2022-07-14] VITALS: Ht 185.4 cm; Wt 73.0 kg
[~2022-07-14 20:05] MED LIST changes: +CEPHALEXIN500 MG PO
[2022-07-14] MEDS ORDERED: ONDANSETRON HCL INJ 2MG/ML 2ML 2 MG/ML VIAL IV STA (20:33)
[2022-07-14] MEDS ORDERED: KETOROLAC TROMETHAMINE 30 MG/ML VIAL IV STA (20:33)
[2022-07-14] MEDS ORDERED: SODIUM CHLORIDE 0.9% 1000ML 1,000 ML IV ONE ×2 (20:45→21:15)
[2022-07-14] MEDS ORDERED: ACETAMINOPHEN 325 MG TAB PO ONE (20:45)
[2022-07-14 20:47] LABS: BASOPHILS # (AUTO) 0.1 (0.0-0.1); BASOPHILS % 0.8 % (0.0-1.0); EOSINOPHILS # (AUTO) 0.1 (0.0-0.4); HEMATOCRIT 43.7 % (38.2-49.6); HEMOGLOBIN 14.8 g/dL (14.0-18.0); LYMPHOCYTES # (AUTO) 1.1 (1.0-3.2); LYMPHOCYTES % 10.7 % (18.0-39.1); MEAN CORPUSCULAR HEMOGLOBIN 34.5 pg (28-32); MEAN CORPUSCULAR HGB CONC 33.9 g/dL (31-35); MEAN CORPUSCULAR VOLUME 101.9 fL (81-99); MONOCYTES # (AUTO) 0.8 (0.2-0.8); MONOCYTES % 7.9 % (4.4-11.3); NEUTROPHILS # (AUTO) 8.3 (2.1-6.9); NEUTROPHILS % 79.3 % (38.7-80.0); PLATELET COUNT 325 x10e3/uL (140-360); RED BLOOD COUNT 4.29 x10e6/uL (4.3-5.7); RED CELL DISTRIBUTION WIDTH 11.9 % (11.7-14.4)
[2022-07-14 20:48] LABS: CLARITY,URINE CLEAR (CLEAR); COLOR,URINE YELLOW (YELLOW); KETONES,URINE NEGATIVE (NEGATIVE); LEUKOCYTE ESTERASE ,URINE NEGATIVE (NEGATIVE); NITRITE,URINE NEGATIVE (NEGATIVE); PROTEIN,URINE DIPSTICK NEGATIVE (NEGATIVE); URINE UROBILINOGEN 0.2 mg/dL (0.2 - 1)
[2022-07-14 21:07] LABS: ALBUMIN 4.1 g/dL (3.5-5.0); ALBUMIN/GLOBULIN RATIO 1.1 (0.8-2.0); CALCIUM 9.5 mg/dL (8.4-10.2); CREATININE, SERUM 0.8 mg/dL (0.72-1.25)
[2022-07-14] MEDS ORDERED: SODIUM CHLORIDE 0.9% 1000ML 1,000 ML ONE (21:16)
[2022-07-14 21:24] LABS: CREATINE KINASE 149 IU/L (30-200)
[2022-07-14] MEDS ORDERED: PANTOPRAZOLE SO40 MG PO (23:18)
[2022-07-15] MEDS ORDERED: IOPAMIDOL 370 MG/ML 100 ML INFUS..BTL INJ ONE (00:35)
== END 2022-07-14 23:24 | disposition home or self-care (01) ==
LOC: ER 20:20
DX: R50.9 Fever, unspecified (principal); R10.31 Right lower quadrant pain; K29.20 Alcoholic gastritis without bleeding; F10.10 Alcohol abuse, uncomplicated; K21.9 Gastro-esophageal reflux disease without esophagitis; R94.31 Abnormal electrocardiogram [ECG] [EKG]
CPT/HCPCS: 36415; 71046; 74177; 76705; 80053; 80320; 81001; 82550; 82553; 83605; 83690; 84484; 85025; 87040; 93005; 99284; J1885; J2405; J2543; J7030; Q9967

== ENCOUNTER 2022-12-30 19:15 | Inpatient (IN) | payer OTHER ==
[~2022-12-30] VITALS: Ht 185.4 cm; Wt 70.3 kg
[~2022-12-30 19:15] MED LIST changes: +PANTOPRAZOLE SO40 MG PO
[2022-12-30] MEDS ORDERED: SODIUM CHLORIDE 0.9% 1000ML 1,000 ML IV ONE (19:45)
[2022-12-30] MEDS ORDERED: SODIUM CHLORIDE FLUSH 10 ML SYR IV PRN (19:45)
[2022-12-30 20:02] LABS: BASOPHILS # (AUTO) 0.1 (0.0-0.1); BASOPHILS % 1.4 % (0.0-1.0); EOSINOPHILS % 0.7 % (0.0-6.0); HEMATOCRIT 44.4 % (38.2-49.6); LYMPHOCYTES # (AUTO) 2.7 (1.0-3.2); LYMPHOCYTES % 48.4 % (18.0-39.1); MEAN CORPUSCULAR HEMOGLOBIN 32.9 pg (28-32); MEAN CORPUSCULAR VOLUME 91.2 fL (81-99); MONOCYTES # (AUTO) 0.5 (0.2-0.8); MONOCYTES % 9.6 % (4.4-11.3); NEUTROPHILS # (AUTO) 2.2 (2.1-6.9); NEUTROPHILS % 39.7 % (38.7-80.0); PLATELET COUNT 282 x10e3/uL (140-360); RED BLOOD COUNT 4.87 x10e6/uL (4.3-5.7); RED CELL DISTRIBUTION WIDTH 13.2 % (11.7-14.4)
[2022-12-30 20:04] LABS: AMPHETAMINES SCREEN,URINE NEGATIVE (NEGATIVE); BENZODIAZEPINES SCREEN,URINE NEGATIVE (NEGATIVE); PHENCYCLIDINE SCREEN,URINE NEGATIVE (NEGATIVE)
[2022-12-30 20:08] LABS: INR 0.81; PROTHROMBIN TIME 11.7 seconds (11.9-14.5)
[2022-12-30 20:09] LABS: PARTIAL THROMBOPLASTIN TIME 29.7 seconds (23.8-35.5)
[2022-12-30] MEDS ORDERED: MULTIVITAMINS- 12 INJECTION 10 ML, FOLIC ACID MDV 1 MG, THIAMINE HCL INJ 100 MG in SODI... IV ONE (20:15)
[2022-12-30] MEDS ORDERED: OCTREOTIDE ACETATE 500 MCG in SODIUM CHLORIDE 0.9% 250ML 249 ML IV ONE (20:15)
[2022-12-30 20:17] LABS: ALANINE AMINOTRANSFERASE 14 IU/L (0-55); ALBUMIN 4.5 g/dL (3.5-5.0); ALBUMIN/GLOBULIN RATIO 1.3 (0.8-2.0); ALKALINE PHOSPHATASE 78 IU/L (40-150); ANION GAP 20.5 mmol/L (8-16); BLOOD UREA NITROGEN < 5 mg/dL (7-26); CALCIUM 9.8 mg/dL (8.4-10.2); CARBON DIOXIDE 23 mmol/L (22-29); CHLORIDE 99 mmol/L (98-107); GLUCOSE 143 mg/dL (74-118); POTASSIUM 3.5 mmol/L (3.5-5.1); SODIUM 139 mmol/L (136-145)
[2022-12-30] MEDS ORDERED: ONDANSETRON HCL INJ 2MG/ML 2ML 2 MG/ML VIAL ONE (20:17)
[2022-12-30] MEDS ORDERED: SODIUM CHLORIDE 0.9% 1000ML 1,000 ML ONE (20:18)
[2022-12-30 20:22] LABS: BUN/CREATININE RATIO 6 (6-25)
[2022-12-30] MEDS ORDERED: ONDANSETRON HCL INJ 2MG/ML 2ML 2 MG/ML VIAL IV STA (20:30)
[2022-12-30] MEDS ORDERED: MELATONIN10 M1 PO (20:49)
[2022-12-30] MEDS ORDERED: SERTRALINE HCL100 MG PO (20:49)
[2022-12-30] MEDS ORDERED: GABAPENTIN300 MG PO (20:49)
[2022-12-30] MEDS ORDERED: NALTREXONE HCL50 MG PO (20:49)
[2022-12-30] MEDS ORDERED: DIVALPROEX SOD500 M1 PO (20:49)
[2022-12-30] MEDS ORDERED: QUETIAPINE FUMA50 MG PO (20:49)
[2022-12-30] MEDS ORDERED: HYDROXYZINE HCL25 MG PO (20:49)
[2022-12-30] MEDS ORDERED: TRAZODONE HCL50 MG PO (20:49)
[2022-12-30] MEDS: SODIUM CHLORIDE 0.9% 1000ML 1,000 ML IV SCH (21:30)
[2022-12-30] MEDS ORDERED: LORAZEPAM INJ 2 MG/ML VIAL IV PRN (21:45)
[2022-12-30 22:50] VITALS: BP 124/83; PULSE 90; RESP 17; TEMP 98.5; O2SAT 95
[2022-12-30 23:31] VITALS: BP 124/83; PULSE 90; RESP 17; TEMP 98.5; O2SAT 95
[2022-12-30 23:56] VITALS: BP 124/83; PULSE 90; RESP 17; TEMP 98.5; O2SAT 95
[2022-12-31] VITALS (7 sets, daily range): BP systolic 113–131; BP diastolic 79–91; PULSE 43–78; RESP 18–21; TEMP 97.6–98.3; O2SAT 96–100
[2022-12-31] MEDS ORDERED: ONDANSETRON HCL INJ 2MG/ML 2ML 2 MG/ML VIAL IV PRN
[2022-12-31] MEDS: METOCLOPRAMIDE HCL 10 MG/2ML VIAL IV SCH ×4 (00:10→16:08)
[2022-12-31 01:00] LABS: BASOPHILS # (AUTO) 0.1 (0.0-0.1); BASOPHILS % 0.9 % (0.0-1.0); EOSINOPHILS % 0.5 % (0.0-6.0); HEMATOCRIT 38.3 % (38.2-49.6); HEMOGLOBIN 13.7 g/dL (14.0-18.0); LYMPHOCYTES # (AUTO) 3.2 (1.0-3.2); LYMPHOCYTES % 49.5 % (18.0-39.1); MEAN CORPUSCULAR HEMOGLOBIN 32.4 pg (28-32); MEAN CORPUSCULAR HGB CONC 35.8 g/dL (31-35); MEAN CORPUSCULAR VOLUME 90.5 fL (81-99); MONOCYTES # (AUTO) 0.9 (0.2-0.8); MONOCYTES % 13.8 % (4.4-11.3); NEUTROPHILS # (AUTO) 2.3 (2.1-6.9); NEUTROPHILS % 35.1 % (38.7-80.0); PLATELET COUNT 230 x10e3/uL (140-360); RED BLOOD COUNT 4.23 x10e6/uL (4.3-5.7); RED CELL DISTRIBUTION WIDTH 13.6 % (11.7-14.4)
[2022-12-31] MEDS: SODIUM CHLORIDE 0.9% 1000ML 1,000 ML IV SCH ×3 (01:58→18:06)
[2022-12-31 05:43] LABS: BASOPHILS # (AUTO) 0.1 (0.0-0.1); BASOPHILS % 1.2 % (0.0-1.0); EOSINOPHILS # (AUTO) 0.1 (0.0-0.4); HEMATOCRIT 39.9 % (38.2-49.6); HEMOGLOBIN 13.7 g/dL (14.0-18.0); LYMPHOCYTES # (AUTO) 2.2 (1.0-3.2); LYMPHOCYTES % 41.7 % (18.0-39.1); MEAN CORPUSCULAR HEMOGLOBIN 32.2 pg (28-32); MEAN CORPUSCULAR HGB CONC 34.3 g/dL (31-35); MEAN CORPUSCULAR VOLUME 93.7 fL (81-99); MONOCYTES # (AUTO) 0.7 (0.2-0.8); MONOCYTES % 14.2 % (4.4-11.3); NEUTROPHILS # (AUTO) 2.2 (2.1-6.9); NEUTROPHILS % 41.7 % (38.7-80.0); PLATELET COUNT 231 x10e3/uL (140-360); RED BLOOD COUNT 4.26 x10e6/uL (4.3-5.7); RED CELL DISTRIBUTION WIDTH 13.9 % (11.7-14.4)
[2022-12-31 06:16] LABS: ALANINE AMINOTRANSFERASE 12 IU/L (0-55); ALBUMIN 3.8 g/dL (3.5-5.0); ALBUMIN/GLOBULIN RATIO 1.5 (0.8-2.0); ALKALINE PHOSPHATASE 67 IU/L (40-150); ANION GAP 17.3 mmol/L (8-16); BLOOD UREA NITROGEN < 5 mg/dL (7-26); CALCIUM 8.7 mg/dL (8.4-10.2); CARBON DIOXIDE 22 mmol/L (22-29); CHLORIDE 105 mmol/L (98-107); CREATININE, SERUM 0.81 mg/dL (0.72-1.25); GLUCOSE 67 mg/dL (74-118); POTASSIUM 4.3 mmol/L (3.5-5.1); SODIUM 140 mmol/L (136-145)
[2022-12-31 06:19] LABS: BUN/CREATININE RATIO 6 (6-25)
[2022-12-31 08:14] LABS: CHOL/HDL RATIO 2.2 (3.9-4.7)
[2022-12-31 11:10] LABS: HEMATOCRIT 38.3 % (38.2-49.6); HEMOGLOBIN 13.5 g/dL (14.0-18.0)
[2022-12-31] MEDS ORDERED: PROPOFOL IV EMULSION 10 MG/ML 20 ML VIAL ONE (11:35)
[2022-12-31] MEDS ORDERED: LIDOCAINE HCL 2% LOCAL INJ 5 ML SDV VIAL INJ ONE (11:35)
[2022-12-31] MEDS ORDERED: MIDAZOLAM HCL 2 MG/2 ML VIAL ONE (12:16)
[2022-12-31] MEDS: CHLORDIAZEPOXIDE HCL 25 MG CAP PO SCH ×2 (16:08→22:21)
[2022-12-31] MEDS: FOLIC ACID 1 MG TAB PO SCH (16:08)
[2022-12-31] MEDS: THIAMINE HCL 100 MG TAB PO SCH (16:08)
[2022-12-31] MEDS: NICOTINE 14 MG/EA PATCH TOP SCH (20:05)
[2023-01-01] MEDS: METOCLOPRAMIDE HCL 10 MG/2ML VIAL IV SCH ×3 (00:04→12:17)
[2023-01-01 01:14] VITALS: BP 141/95; PULSE 78; RESP 18; TEMP 98.5; O2SAT 98
[2023-01-01 04:44] VITALS: BP 113/81; PULSE 57; RESP 16; TEMP 98; O2SAT 97
[2023-01-01] MEDS: CHLORDIAZEPOXIDE HCL 25 MG CAP PO SCH (05:20)
[2023-01-01] MEDS: SODIUM CHLORIDE 0.9% 1000ML 1,000 ML IV SCH (05:20)
[2023-01-01 07:40] VITALS: BP 113/81; PULSE 49; RESP 16; TEMP 98; O2SAT 97
[2023-01-01 07:47] LABS: HEMATOCRIT 40.2 % (38.2-49.6); HEMOGLOBIN 13.9 g/dL (14.0-18.0)
[2023-01-01 08:27] VITALS: BP 132/97; PULSE 50; RESP 18; TEMP 98.1; O2SAT 99
[2023-01-01] MEDS: NICOTINE 14 MG/EA PATCH TOP SCH (08:50)
[2023-01-01] MEDS: FOLIC ACID 1 MG TAB PO SCH (08:50)
[2023-01-01] MEDS: THIAMINE HCL 100 MG TAB PO SCH (08:50)
[2023-01-01 11:37] VITALS: BP 135/98; PULSE 71; RESP 16; TEMP 97.8; O2SAT 98
[2023-01-01 11:42] VITALS: BP 135/98; PULSE 49; PULSE 71; RESP 16; TEMP 97.8; O2SAT 98
== END 2023-01-01 14:59 | disposition left against medical advice (07) | DRG 392 ==
LOC: ER 19:25 → ERHOLD 21:28 → MED/SURG2 22:27 → OBSVTOIN 01-01 09:03
PROVIDERS: ADMIT Internal Medicine; ATTEND Internal Medicine
PROC: 0DB78ZX Excision of Stomach, Pylorus, Via Natural or Artificial Opening Endoscopic, Diagnostic (ICD-10-PCS; principal; 2022-12-31 14:56)
DX: K29.70 Gastritis, unspecified, without bleeding (principal); K92.0 Hematemesis; F10.229 Alcohol dependence with intoxication, unspecified; T51.0X1A Toxic effect of ethanol, accidental (unintentional), initial encounter; Y90.8 Blood alcohol level of 240 mg/100 ml or more; K21.00 Gastro-esophageal reflux disease with esophagitis, without bleeding; D64.9 Anemia, unspecified; F17.210 Nicotine dependence, cigarettes, uncomplicated; K58.9 Irritable bowel syndrome, unspecified; R13.10 Dysphagia, unspecified; Z79.899 Other long term (current) drug therapy; Z20.822 Contact with and (suspected) exposure to COVID-19
CPT/HCPCS: 36415; 43239; 80053; 80061; 80307; 80320; 84134; 85014; 85018; 85025; 85610; 85730; 86850; 86900; 88305; 88342; 93005; 99284; G0378; J2001; J2250; J2353; J2405; J2765; J3411; J7030; J7050